=== PATIENT | female | born 1980 | race Two or more races ===

== ENCOUNTER 2020-03-26 12:05 | Inpatient (IN) | payer OTHER ==
[~2020-03-26] VITALS: Ht 170.2 cm; Wt 83.2 kg
[2020-03-26 13:29] VITALS: BP 128/84
[2020-03-26] MEDS ORDERED: OXYTOCIN 30U/ 0.9% NaCL 500ML 500 ML ONE (13:46)
[2020-03-26] MEDS ORDERED: LIDOCAINE 1%, 20ML ONE (13:46)
[2020-03-26] MEDS ORDERED: NEWBORN KIT ONE (13:46)
[2020-03-26] MEDS ORDERED: MISOPROSTOL 200 MCG TABLET ONE (13:46)
[2020-03-26] MEDS: LACTATED RINGERS 1,000 ML IV SCH (14:05)
[2020-03-26] MEDS ORDERED: D5%-LACTATED RINGERS 1,000 ML IV SCH (15:01)
[2020-03-26] MEDS ORDERED: AMPICILLIN 2 GM in SODIUM CHLORIDE 0.9% 100 ML IVPB ONE (15:01)
[2020-03-26] MEDS ORDERED: OXYTOCIN 30U/ 0.9% NaCL 500ML 500 ML IV PRN (15:01)
[2020-03-26] MEDS ORDERED: OXYTOCIN 30U/ 0.9% NaCL 500ML 500 ML IV ONE (15:01)
[2020-03-26 15:24] LABS: BASOPHILS # (AUTO) 0.04 x10^3/uL (0-0.1); BASOPHILS % (AUTO) 1 % (0-1); EOSINOPHILS # (AUTO) 0.07 x10^3/uL (0-0.4); EOSINOPHILS % (AUTO) 1 % (1-7); LYMPHOCYTES # (AUTO) 1.68 x10^3/uL (1-3.4); LYMPHOCYTES % (AUTO) 21 % (22-44); MD NO; MEAN CORPUSCULAR HEMOGLOBIN 31.9 pg (27.0-34.8); MEAN CORPUSCULAR HGB CONC 33.1 g/dL (32.4-35.8); MEAN CORPUSCULAR VOLUME 96.3 fL (80-100); MONOCYTES # (AUTO) 0.54 x10^3/uL (0.2-0.8); MONOCYTES % (AUTO) 7 % (2-9); NEUTROPHILS # (AUTO) 5.76 x10^3/uL (1.8-6.8); NEUTROPHILS % (AUTO) 71 % (42-75); PLATELET COUNT 208 x10^3/uL (130-400); RED BLOOD COUNT 4.49 x10^6/uL (3.82-5.3); RED CELL DISTRIBUTION WIDTH 13.6 % (9.6-15.2)
[2020-03-26] MEDS ORDERED: METOCLOPRAMIDE 5 MG/ML, 2ML IVPush PRN (15:30)
[2020-03-26] MEDS ORDERED: FENTANYL PF 100 MCG/2ML IV PRN (15:30)
[2020-03-26] MEDS ORDERED: TERBUTALINE 1 MG/ML, 1ML SQ PRN (15:30)
[2020-03-26] MEDS ORDERED: ONDANSETRON 2MG/ML, 2ML IVPush PRN (15:30)
[2020-03-26] MEDS ORDERED: SODIUM CITRATE/CITRIC ACID 30 ML UDC PO PRN (15:30)
[2020-03-26] MEDS ORDERED: CALCIUM CARBONATE 500 MG TAB.CHEW PO PRN (15:30)
[2020-03-26] MEDS ORDERED: FENTANYL PF 100 MCG/2ML IVPush PRN (15:30)
[2020-03-26] MEDS ORDERED: TERBUTALINE 1 MG/ML, 1ML IVPush PRN (15:30)
[2020-03-26] MEDS ORDERED: MISOPROSTOL 25 MCG TABLET ONE ×2 (15:40→19:02)
[2020-03-26] MEDS ORDERED: MISOPROSTOL 25 MCG TABLET VG PRN (16:00)
[2020-03-26] MEDS: AMPICILLIN 1 GM in SODIUM CHLORIDE 0.9% 100 ML IVPB SCH ×2 (19:27→23:26)
[2020-03-27] MEDS ORDERED: FENTANYL PF 100 MCG/2ML ONE (01:23)
[2020-03-27] MEDS: LACTATED RINGERS 1,000 ML IV SCH (02:36)
[2020-03-27] MEDS: AMPICILLIN 1 GM in SODIUM CHLORIDE 0.9% 100 ML IVPB SCH ×2 (03:10→07:24)
[2020-03-27] MEDS ORDERED: BUPIVACAINE 0.25% ONE (03:33)
[2020-03-27] MEDS ORDERED: FENTANYL/BUPIV./NS/PF 250 ML EPIDCONT ONE (03:53)
[2020-03-27] MEDS ORDERED: FENTANYL/BUPIV./NS/PF 250 ML EPIDCONT SCH (03:58)
[2020-03-27] MEDS ORDERED: LACTATED RINGERS 1,000 ML IV SCH (03:58)
[2020-03-27] MEDS ORDERED: LACTATED RINGERS 1,000 ML IVBOLUS PRN (04:00)
[2020-03-27] MEDS ORDERED: EPHEDRINE 50 MG/ML, 1ML IVPush PRN (04:00)
[2020-03-27] MEDS ORDERED: ONDANSETRON 2MG/ML, 2ML ONE ×3 (05:31→18:29)
[2020-03-27] MEDS ORDERED: MISOPROSTOL 200 MCG TABLET PR PRN (08:30)
[2020-03-27] MEDS ORDERED: MEASLES,MUMPS&RUBELLA VACC/PF 0.5 ML SQ-VACC PRN (08:30)
[2020-03-27] MEDS ORDERED: ACETAMINOPHEN 325 MG TABLET PO PRN (08:30)
[2020-03-27] MEDS ORDERED: HYDROcodone/APAP 5/325 TABLET PO PRN (08:30)
[2020-03-27] MEDS ORDERED: RHOGAM FROM BLOOD BANK 1 NOTE EA IM/IV ONE (08:30)
[2020-03-27] MEDS ORDERED: MAGNESIUM HYDROXIDE 8%, 30ML UDC PO PRN (08:30)
[2020-03-27] MEDS: PRENATAL VIT/IRON/FA 1 EACH TABLET PO SCH (09:00)
[2020-03-27] MEDS: OXYTOCIN 30U/ 0.9% NaCL 500ML 500 ML IV SCH ×2 (09:26→18:15)
[2020-03-27] MEDS ORDERED: IBUPROFEN 600 MG TABLET ONE (10:05)
[2020-03-27] MEDS ORDERED: CALCIUM CARBONATE 500 MG TAB.CHEW ONE (10:33)
[2020-03-27 13:00] VITALS: BP 108/75
[2020-03-27 16:30] VITALS: BP 127/83
[2020-03-27 16:38] LABS: BASOPHILS # (AUTO) 0.02 x10^3/uL (0-0.1); BASOPHILS % (AUTO) 0 % (0-1); EOSINOPHILS # (AUTO) 0.09 x10^3/uL (0-0.4); EOSINOPHILS % (AUTO) 1 % (1-7); LYMPHOCYTES # (AUTO) 1.61 x10^3/uL (1-3.4); LYMPHOCYTES % (AUTO) 14 % (22-44); MD NO; MEAN CORPUSCULAR HEMOGLOBIN 32.2 pg (27.0-34.8); MEAN CORPUSCULAR VOLUME 97.6 fL (80-100); MEAN PLATELET VOLUME 9.9 fL (7.4-10.4); MONOCYTES # (AUTO) 0.58 x10^3/uL (0.2-0.8); MONOCYTES % (AUTO) 5 % (2-9); NEUTROPHILS % (AUTO) 80 % (42-75); PLATELET COUNT 198 x10^3/uL (130-400); RED BLOOD COUNT 4.48 x10^6/uL (3.82-5.3); RED CELL DISTRIBUTION WIDTH 13.9 % (9.6-15.2)
[2020-03-27] MEDS ORDERED: ONDANSETRON 2MG/ML, 2ML IVPush PRN (18:30)
[2020-03-27] MEDS: IBUPROFEN 600 MG TABLET PO PRN (21:12)
[2020-03-27] MEDS: DOCUSATE 100 MG CAPSULE PO PRN (21:12)
[2020-03-27 21:15] VITALS: BP 105/72
[2020-03-27] MEDS: ACETAMINOPHEN 325 MG TABLET PO PRN (23:54)
[2020-03-27 23:58] VITALS: BP 105/69
[2020-03-28] MEDS: IBUPROFEN 600 MG TABLET PO PRN ×3 (02:53→18:00)
[2020-03-28] MEDS: OXYTOCIN 30U/ 0.9% NaCL 500ML 500 ML IV SCH ×2 (04:22→14:22)
[2020-03-28 05:30] VITALS: BP 113/78
[2020-03-28] MEDS: ACETAMINOPHEN 325 MG TABLET PO PRN (06:41)
[2020-03-28] MEDS: HYDROcodone/APAP 5/325 TABLET PO PRN ×4 (08:25→17:58)
[2020-03-28] MEDS: DOCUSATE 100 MG CAPSULE PO PRN (08:26)
[2020-03-28] MEDS: PRENATAL VIT/IRON/FA 1 EACH TABLET PO SCH (08:26)
[2020-03-28 08:30] VITALS: BP 116/77
[2020-03-28 19:35] VITALS: BP 103/68
[2020-03-29] MEDS: IBUPROFEN 600 MG TABLET PO PRN ×3 (00:05→12:33)
[2020-03-29] MEDS: DOCUSATE 100 MG CAPSULE PO PRN ×2 (00:05→08:27)
[2020-03-29] MEDS: HYDROcodone/APAP 5/325 TABLET PO PRN ×4 (00:11→17:20)
[2020-03-29] MEDS: OXYTOCIN 30U/ 0.9% NaCL 500ML 500 ML IV SCH ×2 (00:22→10:22)
[2020-03-29 07:30] VITALS: BP 110/72
[2020-03-29] MEDS: PRENATAL VIT/IRON/FA 1 EACH TABLET PO SCH (08:27)
[2020-03-29] MEDS ORDERED: DOCU-131 PO (13:53)
[2020-03-29] MEDS ORDERED: IBUP-1222 PO (13:55)
[2020-03-29] MEDS ORDERED: HYDR-3240 PO (13:57)
== END 2020-03-29 17:22 | disposition home or self-care (01) | DRG 807 ==
LOC: LDOP 12:05 → LDIP 13:51 → 2NW 03-27 12:29
PROVIDERS: ADMIT Obstetrics & Gynecology; ATTEND Obstetrics & Gynecology
PROC: 10E0XZZ Delivery of Products of Conception, External Approach (ICD-10-PCS; principal; 2020-03-27)
PROC: 3E0P7VZ Introduction of Hormone into Female Reproductive, Via Natural or Artificial Opening (ICD-10-PCS; 2020-03-27)
PROC: 3E0R3BZ Introduction of Anesthetic Agent into Spinal Canal, Percutaneous Approach (ICD-10-PCS; 2020-03-27)
PROC: 00HU33Z Insertion of Infusion Device into Spinal Canal, Percutaneous Approach (ICD-10-PCS; 2020-03-27)
DX: O99.824 Streptococcus B carrier state complicating childbirth (principal); Z37.0 Single live birth; O42.113 Preterm premature rupture of membranes, onset of labor more than 24 hours following rupture, third trimester; Z3A.36 36 weeks gestation of pregnancy
CPT/HCPCS: 36415; J7121; 84112; 85025; 86592; 86850; 86900; G0378; J0290; J2405; J3010; J2590; J7120